=== PATIENT | male | born 2000 | race Hispanic/Latino ===

== ENCOUNTER 2025-06-02 05:49 | Emergency (ER) | payer BC ==
[~2025-06-02] VITALS: Ht 170.2 cm; Wt 108.9 kg
--- NOTE | 2025-06-02 06:07 | ERN ---
ED Note History of Present Illness Stated Complaint: SI Chief Complaint: Suicidal Ideation Time Seen by MD: 05:57 Dictation: Patient is a 25-year-old male was brought by EMS from [facility] due to acute alcohol intoxication. The patient has past medical history of hypertension. He denies other illicit drugs consumption. Allergies: Coded Allergies: No Known Drug Allergies (Unverified Allergy, Unknown, 06/02/25) Review of System Dictation NEGATIVE EXCEPT PER HPI Constitutional: Negative for fever,chills, and weight loss Eyes: Negative for injury, pain,redness, and discharge ENT: Negative for injury,pain or swelling Cardiovascular: denies chest pain, palpitations, and edema Respiratory: Negative for shortness of breath, cough, and wheezing, Abdomen/GI: Negative for abdominal pain, nausea, vomiting, diarrhea, and constipation Back: Negative for injury and pain : Negative for injury, bleeding and discharge MS/Extremity: Negative for injury and deformity Skin: Negative for rash, and discoloration Neuro: Negative for headache, weakness, numbness, tingling, and seizure Psych: Negative for suicide ideation, homicidal ideation, and hallucinations Initial Vital Sign VS Vital Signs Date Time Temp Pulse Resp B/P (MAP) Pulse Ox O2 Delivery O2 Flow Rate FiO2 06/02/25 05:55 98.4 111 18 157/64 99 Room Air 0 06/02/25 07:30 21 Physical Exam Dictation General: awake, alert, NAD Head/Face: Normocephalic, atraumatic Eyes: PERRL, EOMI, vision at baseline ENT: oral cavity clear, TMs clear, no signs of infection Neck: Trachea midline, supple, no nuchal rigidity Cardiovascular: RRR, normal S1/S2, No MRGs, no JVD Respiratory: CTAB, no respiratory distress, No rales or wheezes Abdomen: Soft , no tender Skin: Warm, dry, normal turgor, no rash MS/Extremity: Pulses equal, no cyanosis, neurovascular intact, FROM Neuro: COAx4, GCS 15, strength 5/5, CN 2-12 intact, normal cerebellar exam, normal gait, Psych: Normal behavior, mood, and affect normal Results (Laboratory/Radiology) Laboratory/Radiology Laboratory Tests Test 06/02/25 06:14 06/02/25 06:35 06/02/25 09:04 12/21/25 11:34 White Blood Count 9.0 K/uL (4.8-10.8) Red Blood Count 5.89 MIL/uL (4.50-6.20) Hemoglobin 16.0 g/dL (14.0-18.0) Hematocrit 46.8 % (42-54) Mean Corpuscular Volume 79.5 fL (79-99) Mean Corpuscular Hemoglobin 27.2 pg (27.0-33.0) Mean Corpuscular Hemoglobin Concent 34.2 g/dL (32.0-36.0) Red Cell Distribution Width 12.6 % (11.0-15.5) Platelet Count 294 K/uL (130-400) Mean Platelet Volume 9.7 fL (7.5-10.5) Immature Granulocyte % (Auto) 0.9 % (0-1) Neutrophils (%) (Auto) 58.5 % (40.0-77.0) Lymphocytes (%) (Auto) 34.7 % (21.0-51.0) Monocytes (%) (Auto) 4.7 % (3.0-13.0) Eosinophils (%) (Auto) 0.8 % (0.0-8.0) Basophils (%) (Auto) 0.4 % (0.0-5.0) Neutrophils # (Auto) 5.3 K/uL (1.8-7.7) Lymphocytes # (Auto) 3.1 K/uL (1.0-4.8) Monocytes # (Auto) 0.4 K/uL (0.1-1.0) Eosinophils # (Auto) 0.07 K/uL (0.00-0.70) Basophils # (Auto) 0.04 K/uL (0.00-0.20) Absolute Immature Granulocyte (auto 0.08 K/uL (0-1) Nucleated Red Blood Cells 0.0 % (0.0-0.19) Sodium Level 139 mmol/L (136-145) Potassium Level 3.5 mmol/L (3.5-5.1) Chloride Level 101 mmol/L (101-111) Carbon Dioxide Level 24 mmol/L (21-32) Blood Urea Nitrogen 7 mg/dL (7-18) Creatinine 1.0 mg/dL (0.5-1.3) Glomerular Filtration Rate Calc 106 mL/min (>90) Random Glucose 77 mg/dL (70-105) Total Calcium 8.5 mg/dL (8.5-10.1) Salicylates Level < 2.8 mg/dL (2.8-20.0) L Acetaminophen Level < 1 mcg/mL (10-29) L Serum Alcohol 182 mg/dL (0-10) H 137 mg/dL (0-10) H 83 mg/dL (0-10) H Urine Opiates Screen NEGATIVE (NEGATIVE) Urine Barbiturates Screen NEGATIVE (NEGATIVE) Urine Phencyclidine Screen NEGATIVE (NEGATIVE) Urine Amphetamines Screen NEGATIVE (NEGATIVE) Urine Benzodiazepines Screen POSITIVE (NEGATIVE) H Urine Cocaine Screen POSITIVE (NEGATIVE) H Urine Marijuana (THC) Screen NEGATIVE (NEGATIVE) ED Course ED Course Orders Procedure Category Date Status Time Cbc With Differential LAB 06/02/25 Complete 05:59 Basic Metabolic Panel LAB 06/02/25 Complete 05:59 Drug Screen Urine LAB 06/02/25 Complete 05:59 Thiamine Hcl (Vitamin PHA 06/02/25 Complete B-1) 06:00 0.9%Nacl 1000ml (Ns PHA 06/02/25 Complete 1000ml) 06:00 Acetaminophen LAB 06/02/25 Complete 06:35 Salicylate LAB 06/02/25 Complete 06:35 Alcohol, Blood LAB 06/02/25 Complete 06:14 Alcohol, Blood LAB 06/02/25 Complete 08:52 Alcohol, Blood LAB 06/02/25 Complete 11:00 Current Medications Medications (Trade) Dose Ordered Sig/Escobar Route PRN Reason Start Time Stop Time Status Last Admin Dose Admin Sodium Chloride 1,000 ml @ 0 mls/hr ONCE ONCE IV 06/02/25 06:00 06/02/25 06:21 DC 06/02/25 06:30 Thiamine HCl (Vitamin B-1) 100 mg ONCE ONCE IVP 06/02/25 06:00 06/02/25 06:21 DC 06/02/25 06:30 Vital Signs Date Time Temp Pulse Resp B/P (MAP) Pulse Ox O2 Delivery O2 Flow Rate FiO2 06/02/25 10:00 97.5 88 16 121/73 99 Room Air* 0 06/02/25 07:30 97.5 90 16 118/73 98 Room Air* 0 06/02/25 05:55 98.4 111 18 157/64 99 Room Air 0 Medical Decision Making MDM Patient is a 25-year-old male was brought by EMS from [facility] due to acute alcohol intoxication. The patient has past medical history of hypertension. He denies other illicit drugs consumption. Alcohol intoxication Possible drug intoxication Ordered laboratory workup including CBC, CMP, drug screen urine MDM: Differential diagnosis: Rationale: Tests considered and ordered secondary to shared decision making include: Previous outside records reviewed: Old ER visits. Risk of complication and/or morbidity or mortality of patient management: None Medications-Per medication reconciliation Need for hospitalization: Patient does not meet criteria for hospitalization. Need for emergency major/minor surgery: No There are no social concerns with this patient. Prescription drug management Prescriptions will include symptomatic care Patient's prior external medical records from other ER visits were reviewed by me as indicated. Prior testing and results from previous visits were reviewed. Prior tests were taken into account with medical decision making and resource utilization, independent historian/historians were used to obtain complete medical history. I independently interpreted the test that were performed, results were reviewed by me and considered findings on radiology if ordered. Medical management and examination interpretation discussions were had by me with other qualified healthcare professionals as indicated for the patient's care. Patient handed off at shift change pending labs, vital signs all stable alcohol level now under 100 patient is medically clear and stable for discharge back to inpatient rehab with sitter. DX & DISP Disposition: Discharge Departure Impression: Primary Impression: Medical clearance for psychiatric admission Condition: Stable EMMANUEL LAWRENCE MD Jun 02, 2025 06:07 HAROLDO SUNSHINE MD Jun 02, 2025 12:52
[2025-06-02] MEDS: THIAMINE HCL 100 MG/ML 2ML VIAL IVP ONE (06:30)
[2025-06-02] MEDS: 0.9%NACL 1000ML 1,000 ML IV ONE (06:30)
[2025-06-02 06:57] LABS: IMMATURE GRANULOCYTE ABSOLUTE 0.08 K/uL (0-1); NUCLEATED RED BLOOD CELLS 0.0 % (0.0-0.19); PLATELET COUNT (AUTO) 294 K/uL (130-400); RED BLOOD CELL COUNT(AUTO) 5.89 MIL/uL (4.50-6.20); RED CELL DISTRIBUTION WIDTH 12.6 % (11.0-15.5); WHITE BLOOD COUNT (AUTO) 9.0 K/uL (4.8-10.8)
[2025-06-02 07:05] LABS: CREATININE 1.0 mg/dL (0.5-1.3); GLOMERULAR FILTR. RATE CALC 106.0 mL/min (>90); GLUCOSE,RANDOM 77.0 mg/dL (70-105); SODIUM SERUM 139.0 mmol/L (136-145); UREA NITROGEN, BLOOD 7.0 mg/dL (7-18)
[2025-06-02 07:10] LABS: AMPHET/METH SCREEN,URINE NEGATIVE (NEGATIVE); BARBITURATE SCREEN, URINE NEGATIVE (NEGATIVE); CANNABINOID SCREEN,URINE NEGATIVE (NEGATIVE); COCAINE SCREEN,URINE POSITIVE (NEGATIVE)
[2025-06-02 07:28] LABS: ALCOHOL, BLOOD 182 mg/dL (0-10)
--- NOTE | 2025-06-02 07:29 | NUR ---
PT RESTING COMFORTABLY WITH EYES CLOSED IN STRETCHER, PALMS SITTER AND PHD INTERN BY BEDSIDE.
[2025-06-02 14:18] VITALS: BP 121/73; PULSE 70; RESP 16; TEMP 97.5; O2SAT 99
--- NOTE | 2025-06-02 14:19 | NUR ---
report called to palms
== END 2025-06-02 14:37 ==
LOC: EDH 05:49 → EEVIPCON 05:49 → EDH 14:37
DX: Z04.6 Encounter for general psychiatric examination, requested by authority (principal); F10.129 Alcohol abuse with intoxication, unspecified; R45.851 Suicidal ideations; I10 Essential (primary) hypertension; Y90.6 Blood alcohol level of 120-199 mg/100 ml
CPT/HCPCS: 99284; 96374; 80048; 80305; 85025; 36415; G0481; J7030; J3411